=== PATIENT | male | born 1940 | race African-American/Black ===

== ENCOUNTER 2020-11-24 09:47 | Emergency (ER) | payer OTHER ==
[2020-11-24] MEDS ORDERED: MORPHINE 2 MG/ML SYR ONE ×2 (13:17→13:36)
[2020-11-24] MEDS ORDERED: METHYLPREDNISOLONE 125 MG INJ ONE (13:17)
[2020-11-24] MEDS ORDERED: KETOROLAC 30 MG/ML INJ ONE (13:17)
--- NOTE | 2020-11-24 13:34 | EDPHYS ---
Physician Documentation [facility] Name: Arian Riley Age: 80 yrs Sex: Male : 1940 Arrival Date: 11/24/2020 Time: 09:50 Bed 20 Private MD: ED Physician Thomas Maxwell HPI: 11/24 18:24 This 80 yrs old Black Male presents to ER via Wheelchair with complaints of Feet kdr Swelling. 18:24 The patient presents with an injury, pain, that is acute, swelling, tenderness. The kdr complaints affect the left foot, right foot. Context: The problem was sustained on a street or driveway, resulted from has had tight shoes on while traveling. Since taking the shoes off three days ago, he has had pain, Mechanism of Injury: the patient can fully bear weight, the patient is able to ambulate, with mild difficulty. Onset: The symptoms/episode began/occurred gradually, 3 day(s) ago. Modifying factors: The symptoms are alleviated by nothing, the symptoms are aggravated by weight bearing, movement, wearing shoes. Associated signs and symptoms: The patient has no apparent associated signs or symptoms. Severity of symptoms: At their worst the symptoms were mild, in the emergency department the symptoms are unchanged. The patient has not experienced similar symptoms in the past. The patient has not recently seen a physician. Historical: - Allergies: 10:08 No Known Allergies; aa5 - PMHx: 10:08 Prostate Cancer; aa5 - PSHx: 10:08 Knee surgery; prostate; Hernia repair; aa5 - Immunization history:: Adult Immunizations unknown. - Social history:: Smoking status: Patient reports the use of cigarette tobacco products, smokes one-half pack cigarettes per day. ROS: 18:24 Constitutional: Negative for fever, chills, and weight loss, Eyes: Negative for injury, kdr pain, redness, and discharge, ENT: Negative for injury, pain, and discharge, Neck: Negative for injury, pain, and swelling, Cardiovascular: Negative for chest pain, palpitations, and edema, Respiratory: Negative for shortness of breath, cough, wheezing, and pleuritic chest pain, Abdomen/GI: Negative for abdominal pain, nausea, vomiting, diarrhea, and constipation, Back: Negative for injury and pain, : Negative for injury, bleeding, discharge, and swelling, Skin: Negative for injury, rash, and discoloration, Neuro: Negative for headache, weakness, numbness, tingling, and seizure activity. Psych: Negative for depression, anxiety, suicide ideation, homicidal ideation, and hallucinations, Allergy/Immunology: Negative for hives, rash, and allergies, Endocrine: Negative for neck swelling, polydipsia, polyuria, polyphagia, and marked weight changes, Hematologic/Lymphatic: Negative for swollen nodes, abnormal bleeding, and unusual bruising. 18:24 MS/extremity: Positive for pain, tenderness, Negative for decreased range of motion, deformity, tingling, warmth. Exam: 18:24 Constitutional: This is a well developed, well nourished patient who is awake, alert, kdr and in no acute distress. Head/Face: Normocephalic, atraumatic. Eyes: Pupils equal round and reactive to light, extra-ocular motions intact. Lids and lashes normal. Conjunctiva and sclera are non-icteric and not injected. Cornea within normal limits. Periorbital areas with no swelling, redness, or edema. Neck: Trachea midline, no thyromegaly or masses palpated, and no cervical lymphadenopathy. Supple, full range of motion without nuchal rigidity, or vertebral point tenderness. No Meningismus. Chest/axilla: Normal chest wall appearance and motion. Nontender with no deformity. No lesions are appreciated. Cardiovascular: Regular rate and rhythm with a normal S1 and S2. No gallops, murmurs, or rubs. Normal PMI, no JVD. No pulse deficits. Respiratory: Lungs have equal breath sounds bilaterally, clear to auscultation and percussion. No rales, rhonchi or wheezes noted. No increased work of breathing, no retractions or nasal flaring. Abdomen/GI: Soft, non-tender, with normal bowel sounds. No distension or tympany. No guarding or rebound. No evidence of tenderness throughout. Back: No spinal tenderness. No costovertebral tenderness. Full range of motion. Skin: Warm, dry with normal turgor. Normal color with no rashes, no lesions, and no evidence of cellulitis. Neuro: Awake and alert, GCS 15, oriented to person, place, time, and situation. Cranial nerves II-XII grossly intact. Motor strength 5/5 in all extremities. Sensory grossly intact. Cerebellar exam normal. Normal gait. Psych: Awake, alert, with orientation to person, place and time. Behavior, mood, and affect are within normal limits. Vital Signs: 10:06 BP 121 / 64; Pulse 102; Resp 18 S; Temp 98.1(TE); Pulse Ox 100% on R/A; Weight 70.31 kg aa5 (R); Height 5 ft. 11 in. (180.34 cm) (R); Pain 0/10; 11:30 BP 157 / 82; Pulse 83; Resp 16 S; Pulse Ox 100% on R/A; ca1 12:30 BP 137 / 66; Pulse 81; Resp 16 S; Pulse Ox 100% on R/A; ca1 13:28 BP 144 / 75; Pulse 76; Resp 16 S; Pulse Ox 100% on R/A; ca1 10:06 Body Mass Index 21.62 (70.31 kg, 180.34 cm) aa5 MDM: 13:34 Patient medically screened. kdr 18:28 Data reviewed: vital signs, nurses notes, lab test result(s), radiologic studies. kdr Counseling: I had a detailed discussion with the patient and/or guardian regarding: the historical points, exam findings, and any diagnostic results supporting the discharge/admit diagnosis, lab results, radiology results, the need for outpatient follow up. Response to treatment: the patient's symptoms have mildly improved after treatment. Administered Medications: 13:08 Drug: SOLU-Medrol 125 mg Route: IVP; Site: left antecubital; ca1 13:34 Follow up: Response: No adverse reaction; Pain is decreased ca1 13:10 Drug: TORadol - Ketorolac 15 mg Route: IVP; Site: left antecubital; ca1 13:34 Follow up: Response: No adverse reaction; Pain is decreased ca1 13:13 Drug: morphine 4 mg {Note: rass 0.} Route: IVP; Site: left antecubital; ca1 13:34 Follow up: Response: No adverse reaction; Pain is decreased; RASS: Alert and Calm (0) ca1 Disposition: 11/24/20 13:34 Discharged to Home. Impression: Pain in left foot, Pain in right foot. - Condition is Stable. - Discharge Instructions: Foot Pain. - Prescriptions for Tramadol 50 mg Oral Tablet - take 1 tablet by ORAL route every 8 hours as needed; 12 tablet. Medrol (Billy) 4 mg Oral Tablets, Dose Pack - take 1 tablet by ORAL route as directed - follow package instructions; 1 packet. Ibuprofen 600 mg Oral Tablet - take 1 tablet by ORAL route every 6 hours As needed take with food; 15 tablet. - Medication Reconciliation Form, Thank You Letter, Prescription Opioid Use form. - Follow up: Private Physician; When: 2 - 3 days; Reason: If symptoms return, Further diagnostic work-up, Recheck today's complaints, Continuance of care, Re-evaluation by your physician. - Problem is new. - Symptoms have improved. Signatures: Thomas Maxwell MD MD kdr Judith Sebastian RN RN aa5 Lelia Patrick RN RN ca1 Corrections: (The following items were deleted from the chart) 13:46 13:34 11/24/2020 13:34 Discharged to Home. Impression: Pain in left foot; Pain in right ca1 foot. Condition is Stable. Forms are Medication Reconciliation Form, Thank You Letter, Antibiotic Education, Prescription Opioid Use. Follow up: Private Physician; When: 2 - 3 days; Reason: If symptoms return, Further diagnostic work-up, Recheck today's complaints, Continuance of care, Re-evaluation by your physician. Problem is new. Symptoms have improved. kdr
--- NOTE | 2020-11-24 13:34 | ER ---
Nurse's Notes [facility] Name: Arian Riley Age: 80 yrs Sex: Male : 1940 Arrival Date: 11/24/2020 Time: 09:50 Bed 20 Private MD: Diagnosis: Pain in left foot;Pain in right foot Presentation: 11/24 10:06 Chief complaint: Patient states: "my feet are swollen after I got off the plane about 3 aa5 days ago". Pt denies leg pain. Onset of symptoms was November 2020. 10:06 Acuity: CATHERINE 3 aa5 10:06 Method Of Arrival: Wheelchair aa5 10:06 Coronavirus screen: At this time, the client does not indicate any symptoms associated aa5 with coronavirus-19. Ebola Screen: Patient negative for fever greater than or equal to 101.5 degrees Fahrenheit, and additional compatible Ebola Virus Disease symptoms. Initial Sepsis Screen: Does the patient meet any 2 criteria? HR > 90 bpm. Does the patient have a suspected source of infection? No. Patient's initial sepsis screen is negative. Risk Assessment: Do you want to hurt yourself or someone else? Patient reports no desire to harm self or others. Historical: - Allergies: 10:08 No Known Allergies; aa5 - PMHx: 10:08 Prostate Cancer; aa5 - PSHx: 10:08 Knee surgery; prostate; Hernia repair; aa5 - Immunization history:: Adult Immunizations unknown. - Social history:: Smoking status: Patient reports the use of cigarette tobacco products, smokes one-half pack cigarettes per day. Screenin:30 Abuse screen: Denies threats or abuse. Denies injuries from another. Nutritional ca1 screening: No deficits noted. Tuberculosis screening: No symptoms or risk factors identified. Fall Risk IV access (20 points). Assessment: 11:30 General: Appears in no apparent distress. comfortable, Behavior is calm, cooperative, ca1 appropriate for age. Pain: Complains of pain in right foot and left foot Pain currently is 10 out of 10 on a pain scale. Pain began 2-3 days ago. Neuro: Level of Consciousness is awake, alert, obeys commands, Oriented to person, place, time, situation. Cardiovascular: Heart tones S1 S2 present Capillary refill < 3 seconds Patient's skin is warm and dry. Respiratory: Airway is patent Respiratory effort is even, unlabored, Respiratory pattern is regular, symmetrical, Breath sounds are clear bilaterally. GI: Abdomen is flat, non-distended, Bowel sounds present X 4 quads. Abd is soft and non tender X 4 quads. : No signs and/or symptoms were reported regarding the genitourinary system. EENT: No signs and/or symptoms were reported regarding the EENT system. Derm: Skin is intact, is healthy with good turgor, Skin is pink, warm \\T\\ dry. Musculoskeletal: Circulation, motion, and sensation intact. Capillary refill < 3 seconds, Swelling present in right foot and left foot. 12:30 Reassessment: Patient appears in no apparent distress at this time. Patient and/or ca1 family updated on plan of care and expected duration. Pain level reassessed. Patient is alert, oriented x 3, equal unlabored respirations, skin warm/dry/pink. 13:28 Reassessment: Patient appears in no apparent distress at this time. Patient and/or ca1 family updated on plan of care and expected duration. Pain level reassessed. Patient is alert, oriented x 3, equal unlabored respirations, skin warm/dry/pink. 13:34 Reassessment: Patient appears in no apparent distress at this time. Patient is alert, ca1 oriented x 3, equal unlabored respirations, skin warm/dry/pink. Patient states feeling better. Vital Signs: 10:06 BP 121 / 64; Pulse 102; Resp 18 S; Temp 98.1(TE); Pulse Ox 100% on R/A; Weight 70.31 kg aa5 (R); Height 5 ft. 11 in. (180.34 cm) (R); Pain 0/10; 11:30 BP 157 / 82; Pulse 83; Resp 16 S; Pulse Ox 100% on R/A; ca1 12:30 BP 137 / 66; Pulse 81; Resp 16 S; Pulse Ox 100% on R/A; ca1 13:28 BP 144 / 75; Pulse 76; Resp 16 S; Pulse Ox 100% on R/A; ca1 10:06 Body Mass Index 21.62 (70.31 kg, 180.34 cm) aa5 ED Course: 09:50 Patient arrived in ED. as 10:06 Arm band placed on. aa5 10:07 Triage completed. aa5 11:29 Acob, Lelia, RN is Primary Nurse. ca1 11:30 Patient has correct armband on for positive identification. Placed in gown. Bed in low ca1 position. Call light in reach. Side rails up X2. hall monitor on. Pulse ox on. NIBP on. Warm blanket given. 12:24 Thomas Maxwell MD is Attending Physician. kdr 13:35 No provider procedures requiring assistance completed. IV discontinued, intact, ca1 bleeding controlled, No redness/swelling at site. Pressure dressing applied. Administered Medications: 13:08 Drug: SOLU-Medrol 125 mg Route: IVP; Site: left antecubital; ca1 13:34 Follow up: Response: No adverse reaction; Pain is decreased ca1 13:10 Drug: TORadol - Ketorolac 15 mg Route: IVP; Site: left antecubital; ca1 13:34 Follow up: Response: No adverse reaction; Pain is decreased ca1 13:13 Drug: morphine 4 mg {Note: rass 0.} Route: IVP; Site: left antecubital; ca1 13:34 Follow up: Response: No adverse reaction; Pain is decreased; RASS: Alert and Calm (0) ca1 Outcome: 13:34 Discharge ordered by . kdr 13:35 Discharged to home ambulatory, with family. ca1 13:35 Condition: stable 13:35 Discharge instructions given to patient, Instructed on discharge instructions, follow up and referral plans. Demonstrated understanding of instructions, follow-up care. 13:45 Discharged to home via wheelchair, with family. ca1 13:45 Discharged to home 13:45 Condition: improved 13:45 Discharge instructions given to patient, family, Instructed on discharge instructions, follow up and referral plans. no drinking with medication, no driving heavy equipment, medication usage, Demonstrated understanding of instructions, follow-up care, medications, Prescriptions given X 3. 13:46 Patient left the ED. ca1 Signatures: Thomas Maxwell MD MD kdr Shameka Bui Audri, RN RN aa5 Lelia Patrick, JAROCHO RN ca1
[2020-11-25 00:17] VITALS: TEMP 98.1; O2SAT 100
[2020-11-25 00:22] VITALS: BP 144/75
== END 2020-11-24 13:46 | disposition home or self-care (01) ==
LOC: ER 09:47
DX: M79.672 Pain in left foot (principal); M79.671 Pain in right foot; F17.210 Nicotine dependence, cigarettes, uncomplicated; Z85.46 Personal history of malignant neoplasm of prostate
CPT/HCPCS: 96375; 96374; 99284; J2270 ×2; J2930